=== PATIENT | female | born 1990 | race American Indian/Alaskan Native ===

== ENCOUNTER 2018-05-03 19:14 | Emergency (ER) | payer OTHER ==
[2018-05-03 19:35] VITALS: BP 114/77
[2018-05-03 20:24] LABS: HCG Qualitative,Urine Negative (Negative)
[2018-05-03] MEDS ORDERED: CLEOCIN PO ONE (22:23)
--- NOTE | 2018-05-03 22:26 | Emergency Department Report ---
ED ENT HPI - General Chief complaint: Dental/Oral Stated complaint: FACIAL SWELLING/TOOTHACHE Time Seen by Provider: 05/03/18 22:21 Source: patient Mode of arrival: Ambulatory Limitations: No Limitations - History of Present Illness Initial comments: 28-year-old -[place] female presents to the emergency room for 2 weeks of tooth ache and swelling just got worse today. Patient reports that she does have an appointment tomorrow with the dentist. She reports that she's been gargling, taken Tylenol 500 mg and ibuprofen 800 mg without much resolution of the pain. Patient has no known drug allergies. MD complaint: tooth pain -: days(s) (1 right jaw pain), week(s) (2 ) Location: tooth # (20) Severity: severe Severity scale (0 -10): 10 Quality: stabbing, aching, sharp Consistency: constant Improves with: none Worsens with: eating Context- Dental: history of dental caries Associated Symptoms: fever, gum swelling - Related Data Previous Rx's Medication Instructions Recorded Last Taken Type Clindamycin [Clindamycin CAP] 300 mg PO Q8H #30 capsule 05/03/18 Unknown Rx Ketorolac [Toradol] 10 mg PO Q6H PRN #20 tablet 05/03/18 Unknown Rx Allergies Allergy/AdvReac Type Severity Reaction Status Date / Time No Known Allergies Allergy Unverified 05/03/18 19:56 ED Dental HPI - General Chief complaint: Dental/Oral Stated complaint: FACIAL SWELLING/TOOTHACHE Time Seen by Provider: 05/03/18 22:21 Source: patient Mode of arrival: Ambulatory Limitations: No Limitations - Related Data Previous Rx's Medication Instructions Recorded Last Taken Type Clindamycin [Clindamycin CAP] 300 mg PO Q8H #30 capsule 05/03/18 Unknown Rx Ketorolac [Toradol] 10 mg PO Q6H PRN #20 tablet 05/03/18 Unknown Rx Allergies Allergy/AdvReac Type Severity Reaction Status Date / Time No Known Allergies Allergy Unverified 05/03/18 19:56 ED Review of Systems ROS: Stated complaint: FACIAL SWELLING/TOOTHACHE Other details as noted in HPI Constitutional: fever ENT: dental pain Respiratory: denies: cough, shortness of breath, wheezing Cardiovascular: denies: chest pain, palpitations Endocrine: no symptoms reported Gastrointestinal: denies: abdominal pain, nausea, diarrhea Genitourinary: denies: urgency, dysuria, discharge ED Past Medical Hx - Past Medical History Additional medical history: ANEMIA - Surgical History Additional Surgical History: - Social History Smoking Status: Never Smoker Substance Use Type: None - Medications Home Medications: Home Medications Medication Instructions Recorded Confirmed Last Taken Type Clindamycin [Clindamycin CAP] 300 mg PO Q8H #30 capsule 05/03/18 Unknown Rx Ketorolac [Toradol] 10 mg PO Q6H PRN #20 tablet 05/03/18 Unknown Rx ED Physical Exam - General Limitations: No Limitations General appearance: alert, in no apparent distress - Head Head exam: Present: atraumatic, normocephalic - Eye Eye exam: Present: EOMI - Expanded ENT Exam Expanded Teeth exam: Present: dental caries (20), dental tenderness # (20), gingival enlargement (20) Throat exam: Positive: other (left lower jaw swelling with tenderness) ED Course Vital Signs 05/03/18 05/03/18 19:33 19:53 Temperature 100.1 F H 100 F H Pulse Rate 95 H 99 H Respiratory 18 18 Rate Blood Pressure 114/77 114/77 O2 Sat by Pulse 100 99 Oximetry ED Medical Decision Making - Medical Decision Making Patient has been evaluated by this provider fast track. Dental nerve block Toradol for pain management Clindamycin 600 mg by mouth now Discharge patient on clindamycin 300 mg 3 times a day for 10 days. Tordol 10mg Critical care attestation.: If time is entered above; I have spent that time in minutes in the direct care of this critically ill patient, excluding procedure time. ED Disposition Clinical Impression: Tooth abscess Disposition: DC- TO HOME OR SELFCARE Is pt being admited?: No Does the pt Need Aspirin: No Condition: Stable Instructions: Dental Abscess (ED) Additional Instructions: His complete antibiotic as prescribed. Take pain medication as needed and follow up with a dentist. Prescriptions: Clindamycin [Clindamycin CAP] 300 mg PO Q8H #30 capsule Ketorolac [Toradol] 10 mg PO Q6H PRN #20 tablet PRN Reason: Pain Referrals: PRIMARY CARE, [Primary Care Provider] - 3-5 Days [facility] [Outside] - 3-5 Days [facility] [Outside] - 3-5 Days [facility] [Outside] - 3-5 Days Forms: Work/School Release Form(ED)
== END 2018-05-03 23:13 | disposition home or self-care (01) ==
LOC: ED 19:14
DX: K04.7 Periapical abscess without sinus (principal); Z86.2 Personal history of diseases of the blood and blood-forming organs and certain disorders involving the immune mechanism
CPT/HCPCS: 81025; 99283

== ENCOUNTER 2018-10-21 23:42 | Emergency (ER) | payer OTHER ==
[2018-10-21 23:47] VITALS: BP 102/65
[2018-10-22] MEDS ORDERED: ZOFRAN ODT PO ONE (00:35)
[2018-10-22] MEDS ORDERED: ZOFRAN ODT ONE (00:38)
[2018-10-22 01:05] LABS: Basophils % (Auto) 0.3 % (0.0-1.8); Eosinophils # (Auto) 0.1 K/mm3 (0.0-0.4); Eosinophils % (Auto) 0.9 % (0.0-4.3); Hematocrit 29.9 % (30.3-42.9); Hemoglobin 10.2 gm/dl (10.1-14.3); Lymphocytes # (Auto) 1.2 K/mm3 (1.2-5.4); Lymphocytes % (Auto) 17.2 % (13.4-35.0); Mean Corpuscular HGB Conc 34 % (30-34); Mean Corpuscular Volume 88 fl (79-97); Monocytes # (Auto) 0.3 K/mm3 (0.0-0.8); Monocytes % (Auto) 4.5 % (0.0-7.3); Platelet Count 258 K/mm3 (140-440); Red Blood Count 3.41 M/mm3 (3.65-5.03); Red Cell Distribution Width 17.5 % (13.2-15.2)
[2018-10-22 01:52] LABS: BUN/Creatinine Ratio 12; Blood Urea Nitrogen 7 mg/dL (7-17); Calcium 8.8 mg/dL (8.4-10.2); Hemolysis Index 2
[2018-10-22 03:34] LABS: Bilirubin,Urine NEG (Negative); Blood,Urine NEG (Negative); Color,Urine Yellow (Yellow); Mucus,Urine 3+ /HPF; Urobilinogen,Urine < 2.0 mg/dL (<2.0)
[2018-10-22] MEDS ORDERED: ROCEPHIN IM ONE (03:43)
[2018-10-22] MEDS ORDERED: XYLOCAINE 1% MPF 5 mL INFILTRATI ONE (03:43)
--- NOTE | 2018-10-22 04:06 | Emergency Department Report ---
ED General Adult HPI - General Chief complaint: Abdominal Pain Stated complaint: N/V Time Seen by Provider: 10/22/18 03:59 Source: patient Mode of arrival: Ambulatory Limitations: No Limitations - History of Present Illness Initial comments: Pt is a 28 yo female who presents to the ED with c/o N/V that began a week ago. The patient states she is not tolerating PO intake. She is currently 12 weeks and has seen her MANAGER PET Dr. Jacobs. She states she has intermittent suprapubic cramping but no symptoms currently. She denies any urinary sx or fev er. She states she has not been taking a vitamin. Severity scale (0 -10): 5 - Related Data Previous Rx's Medication Instructions Recorded Last Taken Type Nitrofurantoin Monohyd/M-Cryst 100 mg PO BID 5 Days #10 capsule 10/22/18 Unknown Rx [Macrobid 100 mg Capsule] Ondansetron [Zofran ODT TAB] 4 mg PO Q8HR PRN #14 tab.rapdis 10/22/18 Unknown Rx Vit No.130/Iron/Folic 1 each PO DAILY #30 tablet 10/22/18 Unknown Rx [ Tablet] Allergies Allergy/AdvReac Type Severity Reaction Status Date / Time No Known Allergies Allergy Unverified 05/03/18 19:56 ED Review of Systems ROS: Stated complaint: N/V Other details as noted in HPI Comment: All other systems reviewed and negative ED Past Medical Hx - Past Medical History Previous Medical History?: Yes Additional medical history: ANEMIA. Hx of miscarriages - Surgical History Past Surgical History?: Yes Additional Surgical History: - Social History Smoking Status: Former Smoker Substance Use Type: None - Medications Home Medications: Home Medications Medication Instructions Recorded Confirmed Last Taken Type Nitrofurantoin Monohyd/M-Cryst 100 mg PO BID 5 Days #10 capsule 10/22/18 Unknown Rx [Macrobid 100 mg Capsule] Ondansetron [Zofran ODT TAB] 4 mg PO Q8HR PRN #14 tab.rapdis 10/22/18 Unknown Rx Vit No.130/Iron/Folic 1 each PO DAILY #30 tablet 10/22/18 Unknown Rx [ Tablet] ED Physical Exam - General Limitations: No Limitations General appearance: alert, in no apparent distress - Head Head exam: Present: atraumatic, normocephalic - Eye Eye exam: Present: normal appearance - ENT ENT exam: Present: mucous membranes moist - Respiratory Respiratory exam: Present: normal lung sounds bilaterally. Absent: respiratory distress, wheezes, rales, rhonchi, stridor, chest wall tenderness, accessory muscle use, decreased breath sounds, prolonged expiratory - Cardiovascular Cardiovascular Exam: Present: regular rate, normal rhythm, normal heart sounds. Absent: systolic murmur, rubs, gallop - GI/Abdominal GI/Abdominal exam: Present: soft, normal bowel sounds. Absent: distended, ten derness, guarding, rebound, rigid - Back Exam Back exam: Absent: CVA tenderness (R), CVA tenderness (L) - Neurological Exam Neurological exam: Present: alert, oriented X3 - Psychiatric Psychiatric exam: Present: normal affect, normal mood - Skin Skin exam: Present: warm, dry, intact ED Course Vital Signs 10/21/18 10/22/18 10/22/18 23:46 00:28 04:58 Temperature 98.1 F 98.1 F Pulse Rate 89 89 94 H Respiratory 18 18 18 Rate Blood Pressure 102/65 102/65 O2 Sat by Pulse 100 100 100 Oximetry ED Medical Decision Making - Lab Data Result diagrams: 10/22/18 00:45 10/22/18 00:45 Lab Results 10/22/18 10/22/18 10/22/18 Range/Units 00:45 00:45 00:45 WBC 7.2 (4.5-11.0) K/mm3 RBC 3.41 L (3.65-5.03) M/mm3 Hgb 10.2 (10.1-14.3) gm/dl Hct 29.9 L (30.3-42.9) % MCV 88 (79-97) fl MCH 30 (28-32) pg MCHC 34 (30-34) % RDW 17.5 H (13.2-15.2) % Plt Count 258 (140-440) K/mm3 Lymph % (Auto) 17.2 (13.4-35.0) % [place] % (Auto) 4.5 (0.0-7.3) % Eos % (Auto) 0.9 (0.0-4.3) % Baso % (Auto) 0.3 (0.0-1.8) % Lymph # 1.2 (1.2-5.4) K/mm3 [place] # 0.3 (0.0-0.8) K/mm3 Eos # 0.1 (0.0-0.4) K/mm3 Baso # 0.0 (0.0-0.1) K/mm3 Seg Neutrophils % 77.1 H (40.0-70.0) % Seg Neutrophils # 5.5 (1.8-7.7) K/mm3 Sodium 134 L (137-145) mmol/L Potassium 3.6 (3.6-5.0) mmol/L Chloride 99.5 (98-107) mmol/L Carbon Dioxide 21 L (22-30) mmol/L Anion Gap 17 mmol/L BUN 7 (7-17) mg/dL Creatinine 0.6 L (0.7-1.2) mg/dL Estimated GFR > 60 ml/min BUN/Creatinine Ratio 12 % Glucose 72 (65-100) mg/dL Calcium 8.8 (8.4-10.2) mg/dL HCG, Quant 16167 H (0-4) mIU/mL Urine Color (Yellow) Urine Turbidity (Clear) Urine pH (5.0-7.0) Ur Specific [place] (1.003-1.030) Urine Protein (Negative) mg/dL Urine Glucose (UA) (Negative) mg/dL Urine Ketones (Negative) mg/dL Urine Blood (Negative) Urine Nitrite (Negative) Urine Bilirubin (Negative) Urine Urobilinogen (<2.0) mg/dL Ur Leukocyte Esterase (Negative) Urine WBC (Auto) (0.0-6.0) /HPF Urine RBC (Auto) (0.0-6.0) /HPF U Epithel Cells (Auto) (0-13.0) /HPF Urine Mucus /HPF 10/22/18 Range/Units 03:00 WBC (4.5-11.0) K/mm3 RBC (3.65-5.03) M/mm3 Hgb (10.1-14.3) gm/dl Hct (30.3-42.9) % MCV (79-97) fl MCH (28-32) pg MCHC (30-34) % RDW (13.2-15.2) % Plt Count (140-440) K/mm3 Lymph % (Auto) (13.4-35.0) % [place] % (Auto) (0.0-7.3) % Eos % (Auto) (0.0-4.3) % Baso % (Auto) (0.0-1.8) % Lymph # (1.2-5.4) K/mm3 [place] # (0.0-0.8) K/mm3 Eos # (0.0-0.4) K/mm3 Baso # (0.0-0.1) K/mm3 Seg Neutrophils % (40.0-70.0) % Seg Neutrophils # (1.8-7.7) K/mm3 Sodium (137-145) mmol/L Potassium (3.6-5.0) mmol/L Chloride (98-107) mmol/L Carbon Dioxide (22-30) mmol/L Anion Gap mmol/L BUN (7-17) mg/dL Creatinine (0.7-1.2) mg/dL Estimated GFR ml/min BUN/Creatinine Ratio % Glucose (65-100) mg/dL Calcium (8.4-10.2) mg/dL HCG, Quant (0-4) mIU/mL Urine Color Yellow (Yellow) Urine Turbidity Clear (Clear) Urine pH 6.0 (5.0-7.0) Ur Specific [place] 1.030 (1.003-1.030) Urine Protein 30 mg/dl (Negative) mg/dL Urine Glucose (UA) Neg (Negative) mg/dL Urine Ketones 80 (Negative) mg/dL Urine Blood Neg (Negative) Urine Nitrite Neg (Negative) Urine Bilirubin Neg (Negative) Urine Urobilinogen < 2.0 (<2.0) mg/dL Ur Leukocyte Esterase Mod (Negative) Urine WBC (Auto) 84.0 H (0.0-6.0) /HPF Urine RBC (Auto) 17.0 (0.0-6.0) /HPF U Epithel Cells (Auto) 2.0 (0-13.0) /HPF Urine Mucus 3+ /HPF Vital Signs 10/21/18 10/22/18 10/22/18 23:46 00:28 04:58 Temperature 98.1 F 98.1 F Pulse Rate 89 89 94 H Respiratory 18 18 18 Rate Blood Pressure 102/65 102/65 O2 Sat by Pulse 100 100 100 Oximetry - Radiology Data Radiology results: report reviewed PROCEDURE: US OB <= 14 WEEKS FETUS TECHNIQUE: Real-time transabdominal sonography of the uterus, placenta, amniotic fluid, adnexa, and fetus was performed with image documentation. Measurements were obtained to determine age/size. M-mode Doppler was used to document heartbeat. ADDITIONAL GESTATION: None. HISTORY: abdominal cramps COMPARISONS: None . FINDINGS: CRL: 59.2 mm, which corresponds to a gestational age of: 12 weeks, 3 days. Yolk Sac: Appropriate for gestational age. . Embryonic Cardiac Activity: 152 bpm . Gestational Sac: Size and shape are appropriate for gestational age Placenta: Normal Amniotic fluid: Appropriate for gestational age. Cervix: Normal. Right Ovary: Normal . Left Ovary: Normal . Estimated delivery date: 05/03/2019 . Uterus and adnexa: Normal. IMPRESSION: Single live intrauterine gestation at approximately 12 weeks and 3 days . EDC by US 05/03/2019 . This document is electronically signed by Dom Gautam MD., October 22 2018 04:35:49 AM ET - Medical Decision Making Pt is a 28 yo female who presents to the ED with c/o N/V that began a week ago. The patient states she is not tolerating PO intake. She is currently 12 weeks and has seen her MANAGER PET Dr. Jacobs. She states she has intermittent suprapubic cramping but no symptoms currently. She denies any urinary sx or fever. She states she has not been taking a vitamin, discussed in detail with pt to please begin taking one. VSS. no abd tenderness, no pelvic tenderness, no CVAT, normal bowel sounds. Pt given 4 mg of zofran by triage and has had no episodes of emesis, pt able to eat saltine crackers, zayra crackers and drink water with no difficulty. UA shows many WBCs and moderate leukocyte esterase will tx pt with ceftriaxone injection in the ED and give her antibiotics and discussed to please take all as prescribed. Advised pt to please see her MANAGER PET in the next 2-3 days. Advised pt to continue to drink plenty of fluids and eat a bland diet. Return to the ED for any new or worsening symptoms. Critical care attestation.: If time is entered above; I have spent that time in minutes in the direct care of this critically ill patient, excluding procedure time. ED Disposition Clinical Impression: Nausea/vomiting in Qualifiers: Weeks of gestation: 12 weeks Qualified Code(s): Z3A.12 - 12 weeks gestation of UTI (urinary tract infection) Qualifiers: Urinary tract infection type: acute cystitis Hematuria presence: without hematuria Qualified Code(s): N30.00 - Acute cystitis without hematuria Disposition: TO HOME OR SELFCARE Is pt being admited?: No Does the pt Need Aspirin: No Condition: Stable Instructions: (ED), Urinary Tract Infection in Women (ED) Additional Instructions: Please follow up with your MANAGER PET and primary care doctor in the next 2-3 days. Use medication as prescribed. Return to the emergency room for any new or worsening symptoms. Please drink plenty of fluids. Prescriptions: Nitrofurantoin Monohyd/M-Cryst [Macrobid 100 mg Capsule] 100 mg PO BID 5 Days #10 capsule Vit No.130/Iron/Folic [ Tablet] 1 each PO DAILY #30 tablet Ondansetron [Zofran ODT TAB] 4 mg PO Q8HR PRN #14 tab.rapdis PRN Reason: Nausea And Vomiting Referrals: [facility] MD JANE [Primary Care Provider] - 2-3 Days LEANDRA JACOBS MD [Staff Physician] - 2-3 Days Time of Disposition: 04:46 Print Language: TUVALUAN
--- NOTE | 2018-10-22 04:38 | Ultrasound Report ---
PROCEDURE: US OB <= 14 WEEKS FETUS TECHNIQUE: Real-time transabdominal sonography of the uterus, placenta, amniotic fluid, adnexa, and fetus was performed with image documentation. Measurements were obtained to determine age/size. M-mode Doppler was used to document heartbeat. ADDITIONAL GESTATION: None. HISTORY: abdominal cramps COMPARISONS: None . FINDINGS: CRL: 59.2 mm, which corresponds to a gestational age of: 12 weeks, 3 days. Yolk Sac: Appropriate for gestational age. . Embryonic Cardiac Activity: 152 bpm . Gestational Sac: Size and shape are appropriate for gestational age Placenta: Normal Amniotic fluid: Appropriate for gestational age. Cervix: Normal. Right Ovary: Normal . Left Ovary: Normal . Estimated delivery date: 05/03/2019 . Uterus and adnexa: Normal. IMPRESSION: Single live intrauterine gestation at approximately 12 weeks and 3 days . EDC by US . This document is electronically signed by Dom Gautam MD., October 22 2018 04:35:49 AM ET
== END 2018-10-22 04:58 | disposition home or self-care (01) ==
LOC: ED 23:42
DX: O23.11 Infections of bladder in pregnancy, first trimester (principal); O21.8 Other vomiting complicating pregnancy; Z3A.12 12 weeks gestation of pregnancy
CPT/HCPCS: 36415; 76801; 80048; 81001; 84702; 85025; 96372; 99284; J0696; Q0162